=== PATIENT | female | born 1975 | race Caucasian/White ===

== ENCOUNTER 2024-05-06 11:06 | Outpatient (CLI) | payer OTHER, SELFPAY ==
--- NOTE | 2024-05-06 11:13 | USCV_ITS ---
Britni Cheng Age: 49 Gender: F : 1975 Exam Date: 05/06/2024 11:26 Ordering Phys: Karine Brown SOLAR ENERGY INSTALLATION MANAGER SOLAR ENERGY INSTALLATION MANAGER Technologist: CT Exam Location: [facility] – [place] Indication: CP BP: 138 / 79 HR: 63 Rhythm: Sinus Technical Quality: Adequate MEASUREMENTS (Male / Female) Normal Values 2D ECHO LVOT Diameter 2.0 cm LV Ejection Fraction MOD 4C 58.8 % LV Ejection Fraction MOD 2C 70.4 % LV Ejection Fraction 2C AL 71.5 % LA Diameter 2.9 cm RA Systolic Volume 4C AL 21.9 ml RA Systolic Volume 4C MOD 21.6 ml LA Sys Volume AL 45.7 cm cubed LA Sys Volume Index AL 27.8 cm cubed/m squared Aorta at Sinotubular Diameter 2.3 cm IVC Diameter 1.6 cm M-MODE LA Ao Ratio MM 1.0 AV Cusp Separation MM 1.7 cm DOPPLER AV Peak Velocity 98.0 cm/s LVOT Peak Velocity 71.0 cm/s AV Area Cont Eq vti 2.6 cm squared AV Area Cont Eq pk 2.3 cm squared MV Peak Velocity 106.0 cm/s MV Area PHT 4.1 cm squared Mitral E to A Ratio 1.1 TV Peak Velocity 204.7 cm/s TR Peak Velocity 206.5 cm/s TR Peak Gradient 17.1 mmHg TR Mean Velocity 147.0 cm/s TR Mean Gradient 10.2 mmHg TR Velocity Time Integral 60.9 cm TV Peak E Velocity 89.0 cm/s PV Peak Velocity 72.0 cm/s FINDINGS Left Ventricle Normal left ventricular size, systolic function and wall thickness, with no regional wall motion abnormalities. Left ventricular ejection fraction is estimated at 60%. Grade I/IV diastolic dysfunction (abnormal relaxation filling pattern), normal to mildly elevated filling pressures. Right Ventricle The right ventricle is normal in size and function. Right Atrium The right atrium is normal in size. Left Atrium Mildly increased left atrial size. Mitral Valve Mildly thickened mitral valve. Mitral annular calcification. No mitral valve stenosis. Moderate mitral valve regurgitation. Aortic Valve Structurally normal aortic valve without significant sclerosis or stenosis. There is no aortic regurgitation. Tricuspid Valve Structurally normal tricuspid valve without significant stenosis or regurgitation. Pulmonary artery systolic pressure is normal. Pulmonic Valve Structurally normal pulmonic valve without significant stenosis. There is no pulmonic regurgitation. Pericardium Normal pericardium without effusion. Aorta Normal ascending aorta dimension. IVC The inferior vena cava appears normal. CONCLUSIONS Normal left ventricular size, systolic function and wall thickness, with no regional wall motion abnormalities. Left ventricular ejection fraction is estimated at 60%. Grade I/IV diastolic dysfunction (abnormal relaxation filling pattern), normal to mildly elevated filling pressures. Mildly thickened mitral valve. Mitral annular calcification. No mitral valve stenosis. Moderate mitral valve regurgitation. There is no pericardial effusion. Right atrial pressure is around 5 mm of mercury. Henry Christiansen MD (Electronically Signed) Final Date: 17 May 2024 02:40 S
--- NOTE | 2024-05-06 11:13 | USCV_ITS ---
Britni Cheng Age: 49 Gender: F : 1975 Exam Date: 05/06/2024 12:02 Ordering Phys: Karine Brown MANAGEMENT DEPARTMENT CHAIR MANAGEMENT DEPARTMENT CHAIR Technologist: [place] [facility] [place]: Stenosis Risk Factors: Previous Vascular Surgery: Right Brachial BP: / Left Brachial BP: / Right Left Velocity (cm/s) Spectral Plaque Velocity (cm/s) Spectral Plaque Syst/Diast Broadening Syst/Diast Broadening 71.20/ 21.30 Prox CCA 84.30 / 29.70 65.30/ 23.70 Mid CCA 63.10 / 23.70 52.40/ 20.50 Distal CCA 60.50 / 22.10 44.20/ 17.40 Prox ICA 54.20 / 23.30 47.20/ 18.40 Mid ICA 73.80 / 32.60 83.00/ 34.60 Distal ICA 69.40 / 34.50 62.70 ECA 55.30 1.60 ICA/CCA 1.20 Antegrade Vertebral Antegrade 36.60/ 15.00 cm/s 32.30/ 12.60 cm/s Tri Subclavian Tri 67.50 73.40 CONCLUSIONS Right ICA stenosis <50%. Left ICA stenosis <50%. Intimal thickening in the common carotid arteries and internal carotid arteries bilaterally. Normal antegrade Doppler flow noted in the right vertebral artery. Normal antegrade Doppler flow noted in the left vertebral artery. Yves Bonilla MD (Electronically Signed) Final Date: 06 May 2024 15:31 S
== END 2024-05-06 11:07 | disposition home or self-care (01) ==
LOC: RAD 11:10
PROVIDERS: Family Provider Family Medicine; PCP Nurse Practitioner Family; Visit Provider Nurse Practitioner Family
DX: I34.1 Nonrheumatic mitral (valve) prolapse (principal); G45.9 Transient cerebral ischemic attack, unspecified; R93.1 Abnormal findings on diagnostic imaging of heart and coronary circulation; I51.7 Cardiomegaly; I34.81 Nonrheumatic mitral (valve) annulus calcification; I34.0 Nonrheumatic mitral (valve) insufficiency; R93.89 Abnormal findings on diagnostic imaging of other specified body structures
CPT/HCPCS: 93306; 93880

== ENCOUNTER 2024-05-20 12:18 | Outpatient (CLI) | payer OTHER, SELFPAY ==
--- NOTE | 2024-05-20 12:23 | MM_ITS ---
WS: [id number] BILATERAL 3D TOMOSYNTHESIS DIGITAL SCREENING MAMMOGRAPHY WITH CAD CLINICAL INFORMATION: SCREENING HISTORY: Screening mammogram. No current complaints. COMPARISON: 2016 TECHNIQUE: Bilateral CC and MLO views. FINDINGS: The breasts are composed of heterogeneous fibroglandular density tissue, which can limit the detectio n of small underlying mass lesions. No suspicious mass, asymmetry, calcifications, or architectural d istortion. No evidence of malignancy. MM/MM [facility] tomosynthesis [id number] IMPRESSION: DENSITY: The breasts are heterogeneously dense, which may obscure small masses. BI-RADS: 1 - Negative FOLLOW UP: 1 Year Follow-up Recommend return to annual screening mammography.
== END 2024-05-20 12:19 | disposition home or self-care (01) ==
LOC: RAD 12:22
PROVIDERS: PCP Nurse Practitioner Family; Visit Provider Nurse Practitioner Family
DX: Z12.31 Encounter for screening mammogram for malignant neoplasm of breast (principal); R92.333 Mammographic heterogeneous density, bilateral breasts
CPT/HCPCS: 77063; 77067

== ENCOUNTER 2024-07-13 08:07 | Oncology outpatient (recurring) (ONCR) | payer OTHER, SELFPAY ==
[2024-07-13] MEDS: iron dextran 25 MG in SYRINGE 1 EACH 30 MG IVP (09:10)
[2024-07-13 09:21] LABS: Hematocrit 36.2 % (36-47)
[2024-07-13] MEDS: acetaminophen 325 mg Tablet 650 MG PO (10:07)
[2024-07-13] MEDS: IRON DEXTRAN IV (10:20)
[2024-07-13] MEDS: diphenhydrAMINE 50 mg/mL SDV 1mL 25 MG IVP (10:20)
[2024-07-13] MEDS: SODIUM CHLORIDE 0.9% IV (10:20)
[2024-07-13 15:35] VITALS: BP 124/78; PULSE 78; RESP 18; TEMP 36.6; O2SAT 98
== END 2024-07-18 23:59 | disposition home or self-care (01) ==
PROVIDERS: PCP Nurse Practitioner Family; Visit Provider Internal Medicine Medical Oncology
DX: Z53.9 Procedure and treatment not carried out, unspecified reason (principal)
CPT/HCPCS: 36415; 85014; 85018; 96365; 96366; 96375; J1200; J1750; J7030; J9999

== ENCOUNTER 2024-08-09 11:03 | Oncology outpatient (recurring) (ONCR) | payer OTHER, SELFPAY ==
[2024-08-09 11:18] LABS: Basophils # 0.1 10^3/uL (0.0-0.1); Basophils % 0.7 %; Eosinophils # 0.1 10^3/uL (0.0-0.8); Eosinophils % 0.8 %; Lymphocytes # 2.2 10^3/uL (0.8-4.8); Lymphocytes % 29.3 %; Mean Corpuscular HGB Conc 32.4 g/dL (30-55); Mean Corpuscular Hemoglobin 28.7 pg (27-33); Mean Corpuscular Volume 88.8 fl (85-98); Mean Platelet Volume 8.7 fL (7.4-10.4); Monocytes # 0.6 10^3/uL (0.2-0.9); Monocytes % 7.7 %; Neutrophils # 4.56 10^3/uL (1.8-7.7); Neutrophils % 61.2 %; Nucleated Red Blood Cells % 0 %; Platelet Count 272 10^3/cmm (157-399); Red Blood Count 4.28 10^6/uL (3.85-5.65); Red Cell Distribution Width 16.6 % (12.1-15.1); White Blood Count 7.44 10^3/uL (3.29-11.43)
[2024-08-09 11:41] LABS: Alanine Aminotransferase 11 U/L (0-33); Albumin Level 4.3 g/dL (3.5-5.2); Alkaline Phosphatase 92 U/L (35-105); Anion Gap 14.9 (5-19); Aspartate Amino Transferase 13 U/L (0-32); Blood Urea Nitrogen 9 mg/dL (6-20); Calcium 8.8 mg/dL (8.5-10.5); Carbon Dioxide 23 mmol/L (22-29); Chloride 102 mmol/L (98-107); Creatinine Clr Calc Pharmacy 95.6746; Ferritin 278 ng/mL (15-150); Globulin 2.9 g/dL (1.3-4.6); Glomerular Filtration Rate 105.8 mL/min (90-130); Glucose 82 mg/dL (65-115); Iron 112 ug/dL (37-145); Osmolality Calculated 280 mOsm/kg (285-295); Potassium 3.9 mmol/L (3.5-5.1); Sodium 136 mmol/L (136-145); Total Bilirubin 0.3 mg/dL (0.15-1.2); Total Iron Binding Capacity 320 mcg/dl; Total Protein 7.2 g/dL (6.6-8.7); Unsaturated Iron Binding 208 ug/dL (112-347)
[2024-08-09 11:56] LABS: Vitamin B12 445 pg/mL (232-1245)
[2024-08-09 12:00] LABS: Folate Level 18.8 ng/mL (4.8-37.3)
== END 2024-08-17 23:59 | disposition home or self-care (01) ==
PROVIDERS: PCP Nurse Practitioner Family; Visit Provider Internal Medicine Medical Oncology
DX: D50.9 Iron deficiency anemia, unspecified (principal)
CPT/HCPCS: 36415; 80053; 82607; 82728; 82746; 83540; 83550; 85025